=== PATIENT | female | born 1965 | race Caucasian/White ===

== ENCOUNTER → 2019-02-11 | Outpatient (REF) | payer OTHER | LOC: M LAB REF 17:29 | PROVIDERS: ATTEND Dermatology | DX: L66.3 Perifolliculitis capitis abscedens (principal); L57.0 Actinic keratosis | CPT/HCPCS: 11102; 88305; G0463 ==

== ENCOUNTER → 2020-01-06 | Outpatient (CLI) | payer SELFPAY | LOC: M LABSMTC 13:17 | PROVIDERS: ATTEND Pediatrics | DX: Z20.828 Contact with and (suspected) exposure to other viral communicable diseases (principal) ==

== ENCOUNTER → 2022-01-21 | Outpatient (CLI) | payer OTHER | LOC: M WHC 15:37 | PROVIDERS: ATTEND Family Medicine | DX: Z12.31 Encounter for screening mammogram for malignant neoplasm of breast (principal) ==